=== PATIENT | female | born 1955 | race Hispanic/Latino ===

== ENCOUNTER 2018-12-18 14:47 | Outpatient (CLI) | payer BC, OTHER | END 2018-12-18 14:48 | disposition home or self-care (01) | LOC: LABHHL 14:47 | PROVIDERS: ATTEND Surgery | DX: N63.11 Unspecified lump in the right breast, upper outer quadrant (principal); K21.9 Gastro-esophageal reflux disease without esophagitis; Z90.49 Acquired absence of other specified parts of digestive tract | CPT/HCPCS: 88305; 88341; 88342 ==

== ENCOUNTER 2019-01-24 06:31 | Day surgery (SDC) | payer BC, OTHER ==
[~2019-01-24 06:31] MED LIST: VANCOMYCIN/NS 1 GM/250 ML 1 GM/250 ML BAG IV NR
[2019-01-24] MEDS ORDERED: NEURONTIN PO NR (07:00)
[2019-01-24] MEDS ORDERED: LACTATED RINGERS 1,000 ML IV SCH (07:00)
[2019-01-24] MEDS ORDERED: TRANSDERM-SCOP TD NR (07:00)
[2019-01-24] MEDS ORDERED: VERSED IV NR (07:00)
[2019-01-24] MEDS ORDERED: NACL BACTERIOSTATIC INFILTRATI ONE (07:02)
[2019-01-24] MEDS ORDERED: SUBLIMAZE IV ONE (07:03)
[2019-01-24] MEDS ORDERED: MARCAINE-EPI 0.5%-1:200,000 INFILTRATI ONE (07:43)
[2019-01-24] MEDS ORDERED: XYLOCAINE 1% 20 mL ONE ×2 (07:50→07:51)
[2019-01-24 07:56] LABS: Hematocrit 41.1 % (30.3-42.9); Hemoglobin 14.3 gm/dl (10.1-14.3); Mean Corpuscular HGB Conc 35 % (30-34); Mean Corpuscular Volume 90 fl (79-97); Platelet Count 207 K/mm3 (140-440); Red Blood Count 4.58 M/mm3 (3.65-5.03); Red Cell Distribution Width 13.4 % (13.2-15.2)
--- NOTE | 2019-01-24 08:32 | Anesthesia Day of Surgery ---
Anesthesia Day of Surgery - Day of Surgery Patient Examined: Yes Patient H&P Reviewed: Yes Patient is NPO: Yes Cardiac Clearance: Yes
--- NOTE | 2019-01-24 08:32 | Anesthesia Consultation ---
Anesthesia Consult and Med Hx - Airway Anesthetic Teeth Evaluation: Good ROM Head & Neck: Adequate Mallampati Class: Class II Intubation Access Assessment: Good - Pulmonary Exam CTA: Yes - Cardiac Exam Cardiac Exam: RRR - Pre-Operative Health Status ASA Pre-Surgery Classification: ASA3 Proposed Anesthetic Plan: General Nerve Block: PEC BLOCk - Pulmonary Hx Smoking: No Hx Asthma: No Hx Sleep Apnea: No - Cardiovascular System Hx Angina: No Hx Cardia Arrhythmia: Yes (LEFT BUNDLE BRANCH BLOCK) - Central Nervous System Hx Neuromuscular Disorder: (deaf in right ear) Hx Seizures: No CVA: No Hx Psychiatric Problems: No - Gastrointestinal Hx Gastroesophageal Reflux Disease: Yes (mild) - Endocrine Hx Renal Disease: No Hx Insulin Dependent Diabetes: No Hx Thyroid Disease: ("enlarged glands in neck") - Other Systems Hx Cancer: Yes - Additional Comments Anesthesia Medical History Comments: Hx of Breast CA , LBBB with cardiac clearance on chart. PONV, post operative hypotension and delayed wake up from anesthesia. For GA, will get scopolamine patch in pre op
[2019-01-24] MEDS ORDERED: ZOFRAN IV PRN (09:21)
[2019-01-24] MEDS ORDERED: DIPRIVAN 10 MG/ML IV ONE (09:54)
[2019-01-24] MEDS ORDERED: SUBLIMAZE ONE (09:55)
[2019-01-24] MEDS ORDERED: XYLOCAINE CARDIAC IV ONE (09:56)
--- NOTE | 2019-01-24 10:04 | Mammography Report ---
Right breast needle localization: The patient presents with a marker in the superior breast. Using mammographic technique a lateral approach was utilized. The skin was cleansed and 1% lidocaine used for local anesthesia. A 7.5 cm Vega needle was successfully placed adjacent to the marker confirmed by mammographic imaging. A wire was introduced followed by removal of the needle with additional confirmation of wire positioning using mammography. No patient complications encountered.
[2019-01-24] MEDS ORDERED: WATER FOR IRRIG STERILE IR ONE (11:26)
--- NOTE | 2019-01-24 13:06 | Short Stay Summary ---
Short Stay Documentation Date of service: 01/24/19 - History H&P: obtained from office - Allergies and Medications Current Medications: Allergies clarithromycin [From Biaxin] Allergy (Verified 01/22/19 11:51) Anaphylaxis latex Allergy (Verified 01/22/19 11:51) BLISTERS meperidine HCl [From Demerol] Allergy (Verified 01/22/19 11:51) HALLUCINATIONS Penicillins Allergy (Verified 01/22/19 11:51) BLISTERS AND ANAP regadenoson [From Lexiscan] Adverse Reaction (Verified 01/24/19 07:52) Nausea PT STATES BAD NAUSEA WITH LEXISCAN DYE Home Medications Medication Instructions Recorded Confirmed Last Taken Type Pantoprazole [Protonix] 40 mg PO QDAY 03/17/16 01/24/19 01/24/19 05:30 History Sucralfate [Carafate] 1 gm PO QHS 03/17/16 01/22/19 01/23/19 History Cholecalciferol (Vitamin D3) 10,000 unit PO DAILY 01/22/19 01/24/19 01/23/19 History [Vitamin D3 10,000 unit] HYDROcodone/APAP 5-325 [Eros 1 each PO Q6HR PRN #30 tablet 01/24/19 Unknown Rx 5/325] Active Medications Celecoxib (Celebrex) 200 mg PO PREOP NR Stop: 01/24/19 23:45 Last Admin: 01/24/19 07:20 Dose: 200 mg Documented by: Fentanyl (Sublimaze) 50 mcg IV Q5MIN PRN PRN Reason: Pain , Severe (7-10) Stop: 01/24/19 20:00 Gabapentin (Neurontin) 300 mg PO PREOP NR Stop: 01/24/19 23:45 Last Admin: 01/24/19 07:20 Dose: 300 mg Documented by: Vancomycin HCl (Vancomycin/Ns 1 Gm/250 Ml) 1 gm in 250 mls @ 166.667 mls/hr IV PREOP NR; Protocol Stop: 01/24/19 20:00 Last Admin: 01/24/19 09:23 Dose: 166.667 mls/hr Documented by: Lactated Ringer's (Lactated Ringers) 1,000 mls @ 100 mls/hr IV DIRECT RENETTA Last Admin: 01/24/19 08:55 Dose: 100 mls/hr Documented by: Midazolam HCl (Versed) 2 mg IV PREOP NR Stop: 01/24/19 23:59 Last Admin: 01/24/19 09:00 Dose: 2 mg Documented by: Ondansetron HCl (Zofran) 4 mg IV ONCE PRN PRN Reason: Nausea And Vomiting Stop: 01/24/19 16:00 Scopolamine (Transderm-Scop) 1 each TD PREOP NR Stop: 01/24/19 23:45 Last Admin: 01/24/19 07:20 Dose: 1 each Documented by: - Brief post op/procedure progress note Date of procedure: 01/24/19 Pre-op diagnosis: Right breast cancer of the upper outer quadrant Post-op diagnosis: same Procedure: Right needle localization partial mastectomy with SLNB Anesthesia: GETA Findings: x2 SLNS; right partial mastectomy with clip, wire and mass present Surgeon: JACKI SILVER Front End Mechanic: OANH PADILLA Estimated blood loss: minimal Pathology: list (right partial mastectomy and x2 slns) Specimen disposition: to lab Condition: stable - Disposition Condition at discharge: Good Disposition: DC-01 TO HOME OR SELFCARE Short Stay Discharge Plan Activity: other (no heavy lifting) Diet: regular Wound: keep clean and dry (may shower in 48 hours; no baths, pools or lakes; do not rub or scrub incision; wear breast binder) Follow up with: ANGÉLICA MURRAY MD [Primary Care Provider] - 7 Days JACKI SILVER MD [Staff Physician] - 7 Days Prescriptions: HYDROcodone/APAP 5-325 [Eros 5/325] 1 each PO Q6HR PRN #30 tablet PRN Reason: Pain
--- NOTE | 2019-01-24 13:13 | Operative Report ---
Operative Report Operative Report: January 24, 2019 Preoperative diagnosis: Right breast cancer of the upper outer quadrant Postoperative diagnosis: Same Procedure: Right needle localization partial mastectomy and SLNB Surgeon: Mikaela West MD [employer] Internship: Dr. 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 Recommendations were to proceed with breast conservation. She understands the role of adjuvant radiation therapy and Oncotype DX will be obtained by medical oncology if indicated if invasive cancer is found. She wished to proceed with the above procedure. Procedure in detail: The patient was taken to radiology for wire placement for localization known area of cancer. Anesthesia placed right pectoral block. Patient was then taken to the operating room. Gen. anesthesia was administered. The right nipple was injected with radioisotope. Right breast and axilla were prepped and draped in the normal sterile operative fashion. The wire was identified. Timeout was performed. Gamma probe was inserted into the axilla. The area of hot spot was identified. A right axillary incision was made with a 15 blade knife with dissection taken down to the subcutaneous tissues. The axillary fascia was opened with the Bovie cautery. 2 SLNs were identified. All remaining counts were less than 10% of the highest count. Lymph node was sent to pathology for permanent processing. Hemostasis was obtained in the right axillary cavity. Axillary cavity was appropriately irrigated and suctioned. Hemostasis was noted. Axillary fascia was approximated and closed using interrupted 3-0 Vicryl and the skin brought together and closed using a running 4-0 Monocryl followed by skin affix. Attention was then taken towards the right breast. The wire was present. Ultrasound was used as well to servando the area of incision with findings of biopsy cavity with clip and wire present. A 12:00 breast incision was made with a 15 blade knife and dissection taken down to subcutaneous tissues. First began raising of the superior flap with removal with dissection take down to the pectoralis muscle, followed by raising of the inferior flap, medial flap and lateral flap with all flaps taken down to the pectoralis muscle. The wire was removed laterally while raising of the lateral flap.The breast area of concern was appropriately removed posteriorly from the pectoralis muscle with the aid of the Bovie cautery. The wire was not encountered. Specimen was marked and then sent to pathology and radiology; radiograph specimen with wire, mass and clip present. Breast cavity was irrigated and hemostasis was obtained. The posterior deep breast tissues were approximated and closed using interrupted 3-0 Vicryl. The subcutaneous tissues were approximated and closed using interrupted 3-0 Vicryl followed by closing of the skin with a running 4-0 Monocryl and skin affix. The patient tolerated surgery very well and she was awaken from anesthesia without any complication and transported to PACU in good condition.
--- NOTE | 2019-01-24 13:21 | Mammography Report ---
SPECIMEN RADIOGRAPH RIGHT BREAST: 01/24/19 06:31:00 CLINICAL: Surgical excision of known cancer. FINDINGS: The targeted lesion with a biopsy clip and a hookwire are identified within the specimen. The lesion is a spiculated mass measuring approximately 2 cm. IMPRESSION: Excision of the targeted cancer.
[2019-01-24] MEDS: SUBLIMAZE IV PRN ×2 (13:27→13:45)
[2019-01-24] MEDS ORDERED: NORCO 5/325 PO PRN (13:30)
--- NOTE | 2019-01-24 14:41 | Post Anesthesia Evaluation ---
- Post Anesthesia Evaluation Patient Participated: Yes Airway Patent: Yes Stable Respiratory Function: Yes Nausea/Vomiting: No Temp > 96.8F: Yes Pain Manageable: Yes Adequeate Hydration: Yes Anesthesia Complications: No
[2019-01-24 14:45] VITALS: BP 104/42
== END 2019-01-24 15:40 | disposition home or self-care (01) ==
LOC: OR 06:31
PROVIDERS: ATTEND Surgery
DX: C50.411 Malignant neoplasm of upper-outer quadrant of right female breast (principal); G43.909 Migraine, unspecified, not intractable, without status migrainosus; K21.9 Gastro-esophageal reflux disease without esophagitis; F41.9 Anxiety disorder, unspecified; Z80.42 Family history of malignant neoplasm of prostate; Z80.3 Family history of malignant neoplasm of breast; Z80.59 Family history of malignant neoplasm of other urinary tract organ; Z90.710 Acquired absence of both cervix and uterus; Z91.040 Latex allergy status; Z88.0 Allergy status to penicillin; Z79.899 Other long term (current) drug therapy; Z90.49 Acquired absence of other specified parts of digestive tract; Z98.890 Other specified postprocedural states; Z90.11 Acquired absence of right breast and nipple; Z88.8 Allergy status to other drugs, medicaments and biological substances; Z80.1 Family history of malignant neoplasm of trachea, bronchus and lung
CPT/HCPCS: 19281; 19301; 36415; 38525; 38792; 64450; 76098; 78800; 85027; 88307; 88341; 88342; 88368; 93005; 93010; A9541; J2001; J2250; J2405; J2704; J3010; J3370; J7120; 88333

== ENCOUNTER 2021-05-12 10:55 | Outpatient (CLI) | payer BC ==
--- NOTE | 2021-05-12 14:20 | Mammography Report ---
DIGITAL SCREENING MAMMOGRAM WITH CAD, 05/12/2021 CLINICAL INFORMATION / INDICATION: Routine screening mammography. SCREENING MAMMO Z12.31 TECHNIQUE: Digital bilateral 2D mammography was obtained in the craniocaudal and mediolateral obliqu e projections. This examination was interpreted with the benefit of Computer-Aided Detection analysis . COMPARISON: 11/04/2016 through 05/08/2020. FINDINGS: Breast Density: There are scattered areas of fibroglandular density. No dominant mass, suspicious calcifications, or architectural distortion in either breast. There are postlumpectomy/radiation changes in the right superior breast. There is a right biopsy clip laterally. Benign-appearing nodularity in the left breast is stable. No new abnormality is seen. IMPRESSION: No mammographic evidence of malignancy. Follow up recommendation: Routine yearly BI-RADS Category 2: Benign. A "normal" or negative report should not discourage follow up or biopsy of a clinically significant f inding. A written summary of these findings will be mailed to the patient. The patient will be entered into a mammography reporting system which will generate a reminder letter for the patient's next appointmen t at the appropriate interval. The [employer] recommends yearly mammograms starting at age 40 and continuing as l an[place] as a woman is in good health. Breast MRI is recommended for women with an approximate 20-25% or greater lifetime risk of breast cancer, including women with a strong family history of breast or ova navneet cancer or who have been treated for Hodgkin's disease. Signer Name: Ray Freeman MD Signed: 05/12/2021 2:16 PM Workstation Name: [id number]
== END 2021-05-12 10:56 | disposition home or self-care (01) ==
LOC: SPVWC 10:55
PROVIDERS: ATTEND Surgery
DX: Z12.31 Encounter for screening mammogram for malignant neoplasm of breast (principal)
CPT/HCPCS: 77067